=== PATIENT | female | born 1995 | race Caucasian/White ===

== ENCOUNTER 2018-04-29 00:32 | Emergency (ER) | payer SELFPAY ==
[2018-04-29] VITALS (10 sets, daily range): BP systolic 127–141; BP diastolic 54–81
[~2018-04-29] VITALS: Ht 160 cm; Wt 80.7 kg
[2018-04-29] MEDS ORDERED: ANTACID SUSP 30 ML UDC (MYLANTA) PO STA (01:01)
[2018-04-29] MEDS ORDERED: LIDOCAINE 2% VISCOUS 15 ML UDC PO STA (01:01)
[2018-04-29] MEDS ORDERED: NS IV 1000 ML 1,000 ML IV STA (01:02)
--- NOTE | 2018-04-29 01:08 | ED Chest Pain ---
General Chief Complaint: Chest Pain Stated Complaint: CHEST PAIN,VOMITING Nursing Triage Note: Chest pain for the past 3 days. Emesis x3 since 11pm. Nursing Sepsis Screen: No Definite Risk Source: patient, family History of Present Illness Date Seen by Provider: Apr 29, 2018 Time Seen by Provider: 00:44 Timing/Duration: 3-4 days Severity/Quality: moderate Location: substernal Radiation: no radiation Activities at Onset: none Modifying Factors: worse with breathing, worse with exercise This is a 23-year-old female with a history of anxiety presenting to the emergency department with her family for chest pain has been ongoing for several days although it got worse tonight. It is substernal and nonradiating. It is pressure-like, she feels like her throat was closing intermittently over the last couple of days. This is nonexertional. Her pain is not pleuritic. She is not short of breath. She has not had any leg swelling. She has never had a blood clot. She does take oral contraceptives to regulate her menstrual cycle and given a history of ruptured ovarian cyst in the past. No drugs, no smoking. Minimal alcohol. No family history of young people with heart problems. She took 0.25 mg of Xanax but this is not helping her symptoms. She also had been on Prozac in the past and just restarted it tonight. She was seen at an urgent care and had an EKG and was told that her pain was caused by "inflammation" and was told to take 600 mg ibuprofen. She also had some testing with her primary care physician but does not have the results yet, this included thyroid function testing. Of note for the last few days patient has needed to sleep sitting upright somewhat because of her discomfort. She has had some nonbilious nonbloody vomiting and nonbloody non-melanotic diarrhea during this time, as well as a mild nonproductive cough and a questionable subjective fever, she says that her maximum temperature at home was 100. Allergies and Home Medications Allergies Coded Allergies: No Known Drug Allergies (Unverified , 04/29/18) Home Medications Omeprazole 20 Mg Tablet.dr, 20 MG PO BID Prescribed by: LEYLA LOYA on 04/29/18 0224 Ondansetron 8 Mg Tab.rapdis, 8 MG PO BID PRN for NAUSEA/VOMITING-1ST LINE Prescribed by: LEYLA LOYA on 04/29/18223 Sucralfate 1 Gm Tablet, 1 GM PO QID Prescribed by: LEYLA LOYA on 04/29/18236 Patient Home Medication List Home Medication List Reviewed: Yes Review of Systems Review of Systems Constitutional: see HPI EENTM: See HPI Respiratory: Cough; Denies Shortness of Air Cardiovascular: Chest Pain; Denies Edema, Denies Irregular Heart Rate Gastrointestinal: See HPI Genitourinary: No Symptoms Reported Musculoskeletal: no symptoms reported Skin: no symptoms reported Psychiatric/Neurological: Anxiety; Denies Headache Endocrine: No Symptoms Reported Hematologic/Lymphatic: No Symptoms Reported Past Okjwuew-Ibxnxq-Xjaojp Hx Patient Social History Alcohol Use: Occasionally Uses Recreational Drug Use: No Smoking Status: Never a Smoker 2nd Hand Smoke Exposure: No Recent Foreign Travel: No Contact w/Someone Who Travel: No Recent Infectious Disease Expo: No Recent Hopitalizations: No Physical Abuse: No Sexual Abuse: No Mistreated: No Fear: No Immunizations Up To Date Tetanus Booster (TDap): Unknown Seasonal Allergies Seasonal Allergies: No Past Medical History Surgeries: Yes Appendectomy, Tonsillectomy Respiratory: Yes Asthma Cardiac: No Neurological: No : No Last Menstrual Period: Apr 14, 2018 Sexually Transmitted Disease: Yes (genital herpes) HIV/AIDS: No Genitourinary: No Gastrointestinal: No Musculoskeletal: No Endocrine: No HEENT: No Cancer: No Psychosocial: Yes Anxiety Integumentary: No Blood Disorders: No Physical Exam Vital Signs Vital Signs - First Documented 04/29/18 04/29/18 00:40 00:43 Temp 98.8 Pulse 128 Resp 18 B/P (MAP) 140/72 (94) Pulse Ox 100 O2 Delivery Room Air Capillary Refill : Less Than 3 Seconds Height, Weight, BMI Height: 5'3.00" Weight: 178lbs. oz. 80.964650ic; BMI Method:Stated General Appearance: Anxious HEENT: PERRL/EOMI, Pharynx Normal, Moist Mucous Membranes Neck: Supple; No JVD Respiratory: Lungs Clear; No Accessory Muscle Use, No Decreased Breath Sounds, No Pleural Rub, No Rhonci, No Stridor, No Wheezing Cardiovascular: No Edema, Other (tachycardic, regular) Gastrointestinal: Non Tender, Soft Extremity: Normal Capillary Refill, No Calf Tenderness Neurologic/Psychiatric: Alert, Oriented x3 Skin: Warm/Dry Progress/Results/Core Measures Results/Orders Lab Results Laboratory Tests Test 04/29/18 01:05 04/29/18 01:15 04/29/18 01:22 Range/Units White Blood Count 11.8 H 4.3-11.0 10^3/uL Red Blood Count 4.69 4.35-5.85 10^6/uL Hemoglobin 13.5 11.5-16.0 G/DL Hematocrit 41 35-52 % Mean Corpuscular Volume 88 80-99 FL Mean Corpuscular Hemoglobin 29 25-34 PG Mean Corpuscular Hemoglobin Concent 33 32-36 G/DL Red Cell Distribution Width 12.4 10.0-14.5 % Platelet Count 399 130-400 10^3/uL Mean Platelet Volume 9.9 7.4-10.4 FL D-Dimer 0.28 0.00-0.49 UG/ML Sodium Level 139 135-145 MMOL/L Potassium Level 4.2 3.6-5.0 MMOL/L Chloride Level 103 98-107 MMOL/L Carbon Dioxide Level 20 L 21-32 MMOL/L Anion Gap 16 H 5-14 MMOL/L Blood Urea Nitrogen 10 7-18 MG/DL Creatinine 0.65 0.60-1.30 MG/DL Estimat Glomerular Filtration Rate > 60 BUN/Creatinine Ratio 15 Glucose Level 116 H 70-105 MG/DL Calcium Level 9.3 8.5-10.1 MG/DL Corrected Calcium 9.1 8.5-10.1 MG/DL Total Bilirubin 0.2 0.1-1.0 MG/DL Aspartate Amino Transf (AST/SGOT) 19 5-34 U/L Alanine Aminotransferase (ALT/SGPT) 11 0-55 U/L Alkaline Phosphatase 73 40-136 U/L Troponin T < 6 <=10 NG/L Total Protein 7.8 6.4-8.2 GM/DL Albumin 4.3 3.2-4.5 GM/DL Urine Test NEGATIVE NEGATIVE My Orders Orders - LEYLA LOYA DO Chest Pa/Lat (2 View) (04/29/18 00:39) Ekg Tracing (04/29/18 00:39) Hcg,Qualitative Urine (04/29/18 00:39) Fibrin Degradation Products (04/29/18 01:00) Cbc No Diff (04/29/18 01:00) Comprehensive Metabolic Panel (04/29/18 01:00) Lidocaine 2% Viscous 15 Ml (Xylocaine Vi (04/29/18 01:01) Antacid Suspension (Mylanta Suspension (04/29/18 01:01) Ns Iv 1000 Ml (Sodium Chloride 0.9%) (04/29/18 01:02) Lorazepam Injection (Ativan Injection) (04/29/18 01:23) Ondansetron Injection (Zofran Injectio (04/29/18 02:11) Vital Signs/I&O 04/29/18 04/29/18 04/29/18 04/29/18 00:40 00:43 00:45 01:00 Temp 98.8 Pulse 128 126 133 Resp 18 16 16 B/P (MAP) 140/72 (94) 141/74 (96) 131/76 (94) Pulse Ox 100 100 100 O2 Delivery Room Air Room Air 04/29/18 04/29/18 04/29/18 04/29/18 01:15 01:30 01:45 02:00 Pulse 125 119 125 119 Resp 16 16 16 B/P (MAP) 133/73 (93) 135/68 (90) 127/54 (78) Pulse Ox 100 98 100 100 04/29/18 04/29/18 04/29/18 04/29/18 02:15 02:30 02:45 03:00 Pulse 118 119 115 112 Resp 16 16 16 16 B/P (MAP) 136/78 (97) 139/76 (97) 131/81 (98) 131/77 (95) Pulse Ox 100 100 100 100 04/29/18 03:12 Temp 98.8 Pulse 112 Resp 16 B/P (MAP) 131/77 (95) Pulse Ox 100 O2 Delivery Room Air Blood Pressure Mean: 94 Progress Progress Note #1: Progress Note This is a 23-year-old female presenting to the emergency department for several days of ongoing chest pain, sometimes with a sensation that the throat is closing, in the setting of also having nausea, vomiting, diarrhea, and needing to sleep sitting upright. Anxiety may certainly be contributing. Esophageal irritation is also likely contributing. We will treat with a GI cocktail and reassess. Given that she takes hormonal therapy and is arriving tachycardic we will check a d-dimer. She is otherwise low risk for PE and the presentation is atypical for this entity. Pericarditis is a potential etiology however I do not suspect that she would have a significant associated effusion as her blood pressure is actually slightly elevated, heart sounds are not distant, there is no JVD. Progress Note #2: Progress Note Patient had complete resolution of chest pain after GI cocktail however the numbing sensation in her throat and made her very anxious. There is no stridor or drooling. This resolved within a couple of minutes. At about 2:40 AM patient feels improved, she did have some recurrent nausea for which I ordered 8 mg of Zofran. Because a family member had a bad reaction to Phenergan in the past for some reason they did not want to have the full dose of Zofran and only took 4 mg. Heart rate has been somewhat elevated, in the low 100s but into the 120s range when we come into the room and started to talk with the patient. Again it has been elevated when checked several times recently and her physician is checking her thyroid, we do not have thyroid assays available in this facility at this time. We have ruled out PE, anemia, acidosis or other significant electrolyte abnormality, we are treating likely dehydration given recent vomiting and diarrhea, and there may be stress on her system from a mild underlying viral illness causing the diarrhea and vomiting and subjective fevers at home. I think it is reasonable for patient to follow up with her doctor tomorrow for test results and repeat evaluation and I have reminded patient and family to return immediately for any concerning change in her condition. I added a prescription for omeprazole and sucralfate, as well as Zofran and recommended Pepto-Bismol for diarrhea. Comment 0044: sinus tachycardia rate of 120. Normal axis, normal rotation. No ST or T- wave abnormalities. QTC 460 ms. Diagnostic Imaging Comments Radiology interpretation of radiographs not available overnight. EP interpretation: Trachea is midline, no obvious bony abnormalities, cardiomediastinal silhouette grossly normal, diaphragmatic borders and costophrenic angles are sharp, no obvious infiltrates, no pneumothoraces. Departure Impression Primary Impression: Chest pain Additional Impressions: Anxiety Sinus tachycardia Reflux esophagitis Disposition: 01 HOME, SELF-CARE Condition: Stable Departure-Patient Inst. Referrals: NO,LOCAL PHYSICIAN (PCP) Primary Care Physician Patient Instructions: Chest Pain That Is Not Caused by the Heart (DC) Scripts Sucralfate (Carafate) 1 Gm Tablet 1 GM PO QID for 10 Days, #40 TAB Prov: LEYLA LOYA DO 04/29/18 Ondansetron (Ondansetron Odt) 8 Mg Tab.rapdis 8 MG PO BID PRN for NAUSEA/VOMITING-1ST LINE for 14 Days, #30 TAB Prov: LEYLA LOYA DO 04/29/18 Omeprazole (Omeprazole) 20 Mg Tablet.dr 20 MG PO BID for 14 Days, #28 TAB Prov: LEYLA LOYA DO 04/29/18 LEYLA LOYA DO Apr 29, 2018 01:08
[2018-04-29] MEDS ORDERED: LORazepam INJ 2 MG/ML (ATIVAN) VIAL IVP STA (01:23)
[2018-04-29 01:28] LABS: HEMOGLOBIN 13.5 G/DL (11.5-16.0); WHITE BLOOD COUNT 11.8 10^3/uL (4.3-11.0)
[2018-04-29 01:29] LABS: MEAN PLATELET VOLUME 9.9 FL (7.4-10.4); RED CELL DISTRIBUTION WIDTH 12.4 % (10.0-14.5)
[2018-04-29 02:08] LABS: BILIRUBIN,TOTAL 0.2 MG/DL (0.1-1.0); BUN/CREATININE RATIO 15; CALCIUM 9.3 MG/DL (8.5-10.1); CARBON DIOXIDE 20 MMOL/L (21-32); CHLORIDE 103 MMOL/L (98-107); CREATININE SERUM 0.65 MG/DL (0.60-1.30); GFR ESTIMATED > 60; GLUCOSE 116 MG/DL (70-105); POTASSIUM 4.2 MMOL/L (3.6-5.0); SODIUM 139 MMOL/L (135-145)
[2018-04-29 02:09] LABS: ALANINE AMINOTRANSFERASE 11 U/L (0-55); ALBUMIN 4.3 GM/DL (3.2-4.5); ALKALINE PHOSPHATASE 73 U/L (40-136); TOTAL PROTEIN 7.8 GM/DL (6.4-8.2)
[2018-04-29] MEDS ORDERED: ONDANSETRON 4 MG/2 ML (SDV) Z0FRAN IVP STA (02:11)
--- NOTE | 2018-04-29 02:20 | NUR ---
refused 8 mg of zofran as ordered, 4 mg iv zofran given. doctor notified
[2018-04-29] MEDS ORDERED: OMEP20TA7 PO (02:24)
[2018-04-29] MEDS ORDERED: ONDA8TAB13 PO (02:24)
[2018-04-29] MEDS ORDERED: SUCR1TAB36 PO (02:37)
--- NOTE | 2018-04-29 06:56 | Diagnostic Imaging Report ---
INDICATION: Chest pain FINDINGS: The lungs are clear. The heart and vessels normal. There is no effusion or pneumothorax. IMPRESSION: No acute appearing abnormality. Dictated by: Dictated on workstation # [id number]
== END 2018-04-29 03:10 | disposition home or self-care (01) ==
LOC: ER FS 00:36
DX: R07.81 Pleurodynia (principal); F41.9 Anxiety disorder, unspecified; R00.0 Tachycardia, unspecified; K21.0 Gastro-esophageal reflux disease with esophagitis; J45.909 Unspecified asthma, uncomplicated; Z86.19 Personal history of other infectious and parasitic diseases; Z87.448 Personal history of other diseases of urinary system; Z90.49 Acquired absence of other specified parts of digestive tract; Z90.89 Acquired absence of other organs
CPT/HCPCS: 36415; 71046; 80053; 84484; 84703; 85027; 85379; 93005

== ENCOUNTER 2018-05-12 08:46 | Outpatient (RCR) | payer BC, OTHER ==
[~2018-05-12 08:46] MED LIST: OMEP20TA7 PO; ONDA8TAB13 PO; SUCR1TAB36 PO
== END 2018-08-10 | disposition home or self-care (01) ==
LOC: CARD 08:46
PROVIDERS: ATTEND Internal Medicine Cardiovascular Disease
DX: R00.0 Tachycardia, unspecified (principal); R00.2 Palpitations; R07.9 Chest pain, unspecified; F41.1 Generalized anxiety disorder; K21.9 Gastro-esophageal reflux disease without esophagitis; I08.1 Rheumatic disorders of both mitral and tricuspid valves
CPT/HCPCS: 93270; 93306

== ENCOUNTER → 2019-09-29 | Outpatient (CLI) | payer BC | LOC: LAB FS 15:47 | PROVIDERS: ATTEND Family Medicine | DX: N89.8 Other specified noninflammatory disorders of vagina (principal) | CPT/HCPCS: 87254 ==

== ENCOUNTER 2020-05-01 02:35 | Emergency (ER) | payer BC ==
--- NOTE | 2020-05-01 02:50 | ED Chest Pain ---
General Chief Complaint: Chest Pain Stated Complaint: CHEST PAIN History of Present Illness Date Seen by Provider: May 01, 2020 Time Seen by Provider: 02:46 Initial Comments 25-year-old female presents with some left-sided chest pain. Patient reports that started yesterday morning. Patient reports that she has a history of reflux is normally in the middle of her chest but this is more to the left side of her chest. Patient extremely anxious. Patient is also tachycardic with heart rate in the 130s to 140s. She denies any shortness of breath, fever, chills, cough, nausea, vomiting or any other associated symptoms. Allergies and Home Medications Allergies Coded Allergies: No Known Drug Allergies (Unverified , 04/29/18) Home Medications Omeprazole 20 Mg Tablet.dr, 20 MG PO BID Prescribed by: LEYLA LOYA on 04/29/18223 Ondansetron 8 Mg Tab.rapdis, 8 MG PO BID PRN for NAUSEA/VOMITING-1ST LINE Prescribed by: LEYLA LOYA on 04/29/18223 Propranolol HCl 10 Mg Tablet, 10 MG PO BID Prescribed by: JEFFREY MARTÍNEZ on 05/01/20 0450 Sucralfate 1 Gm Tablet, 1 GM PO QID Prescribed by: LEYLA LOYA on 04/29/18 023 Patient Home Medication List Home Medication List Reviewed: Yes Review of Systems Review of Systems Constitutional: No chills, No fever Respiratory: Denies Cough, Denies Shortness of Air Cardiovascular: Chest Pain; Denies Lightheadedness Gastrointestinal: Denies Abdominal Pain, Denies Nausea, Denies Vomiting Genitourinary: No Symptoms Reported Musculoskeletal: no symptoms reported Skin: no symptoms reported Psychiatric/Neurological: Anxiety Endocrine: No Symptoms Reported Hematologic/Lymphatic: No Symptoms Reported Past Yxrdvle-Aiqisc-Dufahi Hx Past Med/Social Hx: Reviewed Nursing Past Med/Soc Hx Patient Social History 2nd Hand Smoke Exposure: No Recent Hopitalizations: No Immunizations Up To Date Tetanus Booster (TDap): Unknown Seasonal Allergies Seasonal Allergies: No Past Medical History Surgeries: Yes Appendectomy, Tonsillectomy Respiratory: Yes Asthma Cardiac: No Neurological: No Sexually Transmitted Disease: Yes (genital herpes) HIV/AIDS: No Genitourinary: No Gastrointestinal: No Musculoskeletal: No Endocrine: No HEENT: No Cancer: No Psychosocial: Yes Anxiety Integumentary: No Blood Disorders: No Physical Exam Vital Signs Vital Signs - First Documented 05/01/20 02:37 Temp 36.4 Pulse 142 Resp 16 B/P (MAP) 143/72 (95) Pulse Ox 98 O2 Delivery Room Air Capillary Refill : Height, Weight, BMI Height: 5'3.00" Weight: 178lbs. oz. 80.473784tg; BMI Method:Stated General Appearance: Anxious Neck: Full Range of Motion Respiratory: Lungs Clear, Normal Breath Sounds Cardiovascular: Normal Peripheral Pulses, Tachycardia Extremity: Normal Capillary Refill, Normal Inspection, Normal Range of Motion Neurologic/Psychiatric: Alert, Oriented x3, Normal Mood/Affect Skin: Normal Color, Warm/Dry Progress/Results/Core Measures Results/Orders Lab Results Laboratory Tests Test 05/01/20 02:51 05/01/20 03:05 Range/Units White Blood Count 12.8 H 4.3-11.0 10^3/uL Red Blood Count 4.65 4.35-5.85 10^6/uL Hemoglobin 12.6 11.5-16.0 G/DL Hematocrit 39 35-52 % Mean Corpuscular Volume 84 80-99 FL Mean Corpuscular Hemoglobin 27 25-34 PG Mean Corpuscular Hemoglobin Concent 32 32-36 G/DL Red Cell Distribution Width 13.2 10.0-14.5 % Platelet Count 375 130-400 10^3/uL Mean Platelet Volume 9.7 7.4-10.4 FL Neutrophils (%) (Auto) 79 H 42-75 % Lymphocytes (%) (Auto) 15 12-44 % Monocytes (%) (Auto) 5 0-12 % Eosinophils (%) (Auto) 1 0-10 % Basophils (%) (Auto) 0 0-10 % Neutrophils # (Auto) 10.1 H 1.8-7.8 X 10^3 Lymphocytes # (Auto) 1.9 1.0-4.0 X 10^3 Monocytes # (Auto) 0.6 0.0-1.0 X 10^3 Eosinophils # (Auto) 0.1 0.0-0.3 10^3/uL Basophils # (Auto) 0.0 0.0-0.1 10^3/uL D-Dimer 0.21 0.00-0.49 UG/ML Sodium Level 136 135-145 MMOL/L Potassium Level 3.8 3.6-5.0 MMOL/L Chloride Level 103 98-107 MMOL/L Carbon Dioxide Level 20 L 21-32 MMOL/L Anion Gap 13 5-14 MMOL/L Blood Urea Nitrogen 10 7-18 MG/DL Creatinine 0.70 0.60-1.30 MG/DL Estimat Glomerular Filtration Rate > 60 BUN/Creatinine Ratio 14 Glucose Level 109 H 70-105 MG/DL Calcium Level 9.0 8.5-10.1 MG/DL Corrected Calcium 9.2 8.5-10.1 MG/DL Magnesium Level 1.8 1.6-2.4 MG/DL Total Bilirubin 0.4 0.1-1.0 MG/DL Aspartate Amino Transf (AST/SGOT) 15 5-34 U/L Alanine Aminotransferase (ALT/SGPT) 9 0-55 U/L Alkaline Phosphatase 74 40-136 U/L C-Reactive Protein 0.49 <0.50 MG/DL Total Protein 7.0 6.4-8.2 GM/DL Albumin 3.7 3.2-4.5 GM/DL Lipase 17 8-78 U/L My Orders Orders - MARTÍNEZ,JEFFREY L DO Ekg Tracing (05/01/20 02:51) Monitor-Rhythm Ecg Trace Only (05/01/20 02:51) Cbc With Automated Diff (05/01/20 02:51) Comprehensive Metabolic Panel (05/01/20 02:51) Fibrin Degradation Products (05/01/20 02:51) Drug Screen Stat (Urine) (05/01/20 02:51) Hcg,Qualitative Urine (05/01/20 02:51) Lipase (05/01/20 02:51) Magnesium (05/01/20 02:51) Ua Culture If Indicated (05/01/20 02:51) Crp Fs (05/01/20 02:51) Chest 1 View Ap/Pa Only (05/01/20 02:51) Aspirin Chewable Tablet (Baby Aspirin Ch (05/01/20 03:00) Lactated Ringers (Lr 1000 Ml Iv Solution (05/01/20 03:37) Famotidine Injection (Pepcid Injection) (05/01/20 03:37) Medications Given in ED Current Medications Medications Dose Ordered Sig/Luis Enrique Route Start Time Stop Time Status Last Admin Dose Admin Aspirin 324 mg ONCE ONCE PO 05/01/20 03:00 05/01/20 03:01 DC 05/01/20 03:13 324 MG Vital Signs/I&O 05/01/20 05/01/20 02:37 04:54 Temp 36.4 Pulse 142 112 Resp 16 16 B/P (MAP) 143/72 (95) 136/61 Pulse Ox 98 99 O2 Delivery Room Air Room Air Progress Progress Note : Time: 04:53 Progress Note Patient is extremely anxious. Her heart rate was initially in the 130s to 140s. Upon discharge her heart rate dropped 110's. Patient's heart rate will jump whenever staff goes in the visit with her that makes me think there may be some underlying anxiety component. EKG showed sinus tachycardia at 132. Patient did not want any further medication for treatment following the IV fluids and Pepcid that she has received. She was offered beta-barrera and Toradol for the chest pain. The chest pain has improved. Will prescribe her propanolol 10 mg twice daily. I recommend she follow-up outpatient with a rail car driver since her heart rate remained elevated throughout the stay. Patient did not want any further intervention or treatment and was very hesitant on any medications outside of propanolol that I would have considered prescribing her given to her. She did not want to start it here in the ER. Patient stable and discharged home Initial ECG Impression Date: May 01, 2020 Initial ECG Impression Time: 02:41 Initial ECG Rhythm: Normal Sinus Initial ECG Intervals: Normal Comment sinus tachycardia, otherwise normal ekg Diagnostic Imaging Diagonstic Imaging: Xray Plain Films/CT/US/NM/MRI: chest Comments no acute findings Reviewed: Reviewed by Me Departure Impression Primary Impression: Tachycardia Additional Impression: Anxiety Disposition: 01 HOME, SELF-CARE Condition: Stable Departure-Patient Inst. Referrals: LOLITA FELICIANO MD (PCP/Family) Primary Care Physician ALOK BEST MD Patient Instructions: Anxiety, Adult (DC), Sinus Tachycardia (DC) Add. Discharge Instructions: Follow-up with your primary care provider Saturday to arrange for recheck of your symptoms and a cardiology consult All discharge instructions reviewed with patient and/or family. Voiced understanding. Scripts Propranolol HCl (Propranolol HCl) 10 Mg Tablet 10 MG PO BID, #20 TAB Prov: JEFFREY MARTÍNEZ DO 05/01/20 JEFFREY MARTÍNEZ DO May 01, 2020 02:50
[2020-05-01] MEDS ORDERED: ASPIRIN 81 MG CHEW (CHILDREN'S ASA) PO ONE (03:00)
[2020-05-01 03:23] LABS: HEMATOCRIT 39 % (35-52); HEMOGLOBIN 12.6 G/DL (11.5-16.0); MEAN CORPUSCULAR HEMOGLOBIN 27 PG (25-34); MEAN CORPUSCULAR HGB CONC 32 G/DL (32-36); MEAN CORPUSCULAR VOLUME 84 FL (80-99); WHITE BLOOD COUNT 12.8 10^3/uL (4.3-11.0)
[2020-05-01 03:24] LABS: BASOPHILS % (AUTO) 0 % (0-10); EOSINOPHILS # (AUTO) 0.1 10^3/uL (0.0-0.3); EOSINOPHILS % (AUTO) 1 % (0-10); LYMPHOCYTES # (AUTO) 1.9 X 10^3 (1.0-4.0); LYMPHOCYTES % (AUTO) 15 % (12-44); MEAN PLATELET VOLUME 9.7 FL (7.4-10.4); MONOCYTES # (AUTO) 0.6 X 10^3 (0.0-1.0); MONOCYTES % (AUTO) 5 % (0-12); NEUTROPHILS # (AUTO) 10.1 X 10^3 (1.8-7.8); NEUTROPHILS % (AUTO) 79 % (42-75); PLATELET COUNT 375 10^3/uL (130-400)
[2020-05-01] MEDS ORDERED: FAMOTIDINE 20MG/2ML IV (PEPCID) IV STA (03:37)
[2020-05-01] MEDS ORDERED: LACTATED RINGERS 1,000 ML IV STA (03:37)
[2020-05-01 03:49] LABS: ALANINE AMINOTRANSFERASE 9 U/L (0-55); ALBUMIN 3.7 GM/DL (3.2-4.5); ALKALINE PHOSPHATASE 74 U/L (40-136); BILIRUBIN,TOTAL 0.4 MG/DL (0.1-1.0); BUN/CREATININE RATIO 14; CARBON DIOXIDE 20 MMOL/L (21-32); CHLORIDE 103 MMOL/L (98-107); GFR ESTIMATED > 60; GLUCOSE 109 MG/DL (70-105); LIPASE 17 U/L (8-78); MAGNESIUM 1.8 MG/DL (1.6-2.4); POTASSIUM 3.8 MMOL/L (3.6-5.0); SODIUM 136 MMOL/L (135-145)
[2020-05-01] MEDS ORDERED: PROP10TA8 PO (04:50)
[2020-05-01 04:54] VITALS: BP 136/61
--- NOTE | 2020-05-01 06:33 | Diagnostic Imaging Report ---
Indication: Chest pain. Comparison: 04/29/2018. Discussion: Single portable upright view of the chest was obtained. Stable normal heart size. No consolidation, pleural fluid, or pneumothorax. No osseous abnormality. Impression: 1. Negative chest. Dictated by: Dictated on workstation # [id number]
== END 2020-05-01 04:59 | disposition home or self-care (01) ==
LOC: EDUNIT# 02:35 → ER FS 02:38
DX: R00.0 Tachycardia, unspecified (principal); F41.9 Anxiety disorder, unspecified
CPT/HCPCS: 71045; 80053; 83690; 83735; 85379; 86141; 93005; 93041

== ENCOUNTER → 2020-07-26 | Outpatient (CLI) | payer BC ==
[~2020-07-26] MED LIST changes: +PROP10TA8 PO
== END ==
LOC: LAB FS 14:21
PROVIDERS: ATTEND Family Medicine
DX: R07.9 Chest pain, unspecified (principal)
CPT/HCPCS: 36415; 85379

== ENCOUNTER → 2020-12-13 | Outpatient (CLI) | payer BC, OTHER | LOC: LAB FS 11:30 | PROVIDERS: ATTEND Family Medicine | DX: R05.9 Cough, unspecified (principal); Z20.822 Contact with and (suspected) exposure to COVID-19 | CPT/HCPCS: 87635 ==